=== PATIENT | female | born 1965 | race Caucasian/White ===

== ENCOUNTER 2017-01-17 11:50 | Observation (INO) | payer OTHER ==
[~2017-01-17] VITALS: Ht 172.7 cm; Wt 57.2 kg
[2017-01-17 13:26] LABS: BASOPHIL COUNT 0.1 K/uL (0-0.1); EOSINOPHIL (%) 0.6 % (0-5); HEMATOCRIT 38.8 % (36.0-46.0); IMMATURE GRANULOCYTE (%) 0.3 % (0.0-0.7); INSTRUMENT ABS NEUTROPHIL CT 4.2 K/uL; LYMPHOCYTE COUNT 1.6 K/uL (1.0-2.8); MCH 31.8 PG (29.0-34.0); MCHC 34.8 G/DL (30.0-36.0); MCV 91.5 FL (83-99); MEAN PLAT.VOLUME 10.6 uM^3 (9.5-12.4); MONOCYTE COUNT 0.3 K/uL (0-0.8); NEUTROPHIL (%) 67.7 % (45-76); NEUTROPHIL COUNT 4.2 K/uL (1.8-6.4); PLATELET COUNT 246 K/uL (156-360); RBC DIS.WIDTH-SD 39.9 % (39-53); RED BLOOD COUNT 4.24 M/uL (3.80-5.20); WHITE BLOOD COUNT 6.2 K/uL (4.1-10.2)
[2017-01-17 13:45] LABS: CHLORIDE 104 mEq/L (99-109); POTASSIUM 4.6 mEq/L (3.7-5.4); SODIUM 139 mEq/L (136-147)
[2017-01-17 13:46] LABS: MAGNESIUM 2.3 mg/dL (1.3-2.7)
[2017-01-17 13:48] LABS: GLUCOSE 90 mg/dL (70-99)
[2017-01-17 13:49] LABS: ANION GAP 12 MEQ/L (2-14)
[2017-01-17 13:50] LABS: TOTAL BILIRUBIN 1.2 mg/dL (0.0-1.0)
[2017-01-17 13:51] LABS: ALKALINE PHOSPHATASE 51 IU/L (3-129); GFR ESTIMATE (CALCULATED) > 59 mL/min/
[2017-01-17 13:52] LABS: UREA NITROGEN (BUN) 9 mg/dL (9-23)
[2017-01-17 13:58] LABS: ADD MIUA? NO; BILIRUBIN NEGATIVE; BLOOD NEGATIVE; COLOR STRAW ((YELLOW)); GLUCOSE (STRIP) NEGATIVE; KETONES NEGATIVE; LEUKOCYTES NEGATIVE; NITRITE NEGATIVE; PROTEIN (STRIP) NEGATIVE; SPECIFIC GRAVITY 1.008 (1.000-1.030); UCUL ADDED? NO; UROBILINOGEN 0.2 MG/DL (0.2-1.0)
[2017-01-17] MEDS ORDERED: ABILIFY5 MG PO (16:14)
[2017-01-17] MEDS ORDERED: LEXAPRO20 MG PO (16:14)
[2017-01-17] MEDS ORDERED: BENZTROPINE ME0.5 MG PO (16:15)
[2017-01-17] MEDS ORDERED: SYMBICORT60 INHALAT IH (16:15)
[2017-01-17] MEDS ORDERED: VENTOLIN HFA18 GM IH (16:15)
[2017-01-17 22:56] VITALS: BP 122/59
[2017-01-18 03:53] VITALS: BP 114/66
[2017-01-18 10:54] LABS: TREPONEMA ANTIBODY NEGATIVE (NEGATIVE)
[2017-01-18 12:18] VITALS: BP 121/67
[2017-01-18 16:00] VITALS: BP 131/74
[2017-01-18 21:00] VITALS: BP 114/78
[2017-01-19 00:19] VITALS: BP 105/57
[2017-01-19 04:21] VITALS: BP 122/67
[2017-01-19 13:43] LABS: APPEARANCE CLEAR/COLORLESS; RED CELL AREA COUNTED 18; RED CELL COUNT 2 /MM^3 (0-1); RED CELL DILUTION 1; WBC AREA COUNTED 18; WBC DILUTION 1; WHITE CELL COUNT 0 /MM^3 (0-5); WHITE CELL RAW COUNT 0
[2017-01-19 16:15] VITALS: BP 114/55
[2017-01-19 19:18] VITALS: BP 118/55
[2017-01-19 23:59] VITALS: BP 114/57
[2017-01-20 05:26] VITALS: BP 117/74
[2017-01-20 11:30] VITALS: BP 113/59
[2017-01-20] MEDS ORDERED: CYANOCOBALAM1000 MCG PO (13:28)
[2017-01-20] MEDS ORDERED: FIORICET 50-301 EAC1 PO (13:28)
[2017-01-20] MEDS ORDERED: FLEXERIL5 MG PO (13:32)
[2017-01-21 18:25] LABS: IgG Index, CSF 0.42 index (<0.66); Synthesis Rate IgG, CSF -3.8 mg/24 h (-9.9-3.3)
== END 2017-01-20 13:58 | disposition home or self-care (01) ==
LOC: EME 11:50 → 5WEST 16:42 → EDOF 16:42 → ENRESERV 16:44 → 5WEST 22:40
PROVIDERS: Emergency Medicine; Hospitalist; Radiology Diagnostic Radiology
PROC: 009U3ZX Drainage of Spinal Canal, Percutaneous Approach, Diagnostic (ICD-10-PCS; principal; 2017-01-19)
DX: R20.0 Anesthesia of skin (principal); R20.2 Paresthesia of skin; R15.9 Full incontinence of feces; R47.9 Unspecified speech disturbances; G93.0 Cerebral cysts; G97.1 Other reaction to spinal and lumbar puncture; F31.9 Bipolar disorder, unspecified; J44.9 Chronic obstructive pulmonary disease, unspecified; E53.8 Deficiency of other specified B group vitamins; G43.909 Migraine, unspecified, not intractable, without status migrainosus; M62.81 Muscle weakness (generalized); M54.2 Cervicalgia; R11.0 Nausea; Z96.641 Presence of right artificial hip joint; F12.90 Cannabis use, unspecified, uncomplicated; M51.36 Other intervertebral disc degeneration, lumbar region; M51.34 Other intervertebral disc degeneration, thoracic region; M51.26 Other intervertebral disc displacement, lumbar region; Z87.891 Personal history of nicotine dependence; Z88.5 Allergy status to narcotic agent; Z88.6 Allergy status to analgesic agent
CPT/HCPCS: 62270; 70450; 70553; 71020; 72141; 72146; 72148; 77003; 80053; 81003; 82040 90; 82042 90; 82607; 82784 90; 82945; 83735; 83873 90; 83916 90; 84157; 84443; 85025; 86780; 87070; 87205; 89051; 94640 76; 95819; 99202; 99281; 99285; G0378; G8978 GP CH; G8979 GP CH; G8980 GP CH; J3420

== ENCOUNTER 2017-06-05 16:49 | Emergency (ER) | payer OTHER ==
[~2017-06-05] VITALS: Ht 172.7 cm; Wt 57.7 kg
[~2017-06-05 16:49] MED LIST: ABILIFY5 MG PO; BENZTROPINE ME0.5 MG PO; CYANOCOBALAM1000 MCG PO; FIORICET 50-301 EAC1 PO; FLEXERIL5 MG PO; LEXAPRO20 MG PO; SYMBICORT60 INHALAT IH; VENTOLIN HFA18 GM IH
[2017-06-05] MEDS ORDERED: HYDROCODON-ACE1 EAC7 PO (17:06)
[2017-06-05 17:20] LABS: BASOPHIL (%) 1.2 % (0-1); BASOPHIL COUNT 0.1 K/uL (0-0.1); EOSINOPHIL (%) 5.8 % (0-5); EOSINOPHIL COUNT 0.4 K/uL (0-0.3); HEMATOCRIT 39.2 % (36.0-46.0); HEMOGLOBIN 13.9 G/DL (11.9-15.5); IMMATURE GRANULOCYTE (%) 0.3 % (0.0-0.7); LYMPHOCYTE (%) 30.5 % (15-42); LYMPHOCYTE COUNT 2.3 K/uL (1.0-2.8); MCHC 35.5 G/DL (30.0-36.0); MCV 90.3 FL (83-99); MONOCYTE (%) 9.2 % (3-12); MONOCYTE COUNT 0.7 K/uL (0-0.8); PLATELET COUNT 258 K/uL (156-360); RBC DIS.WIDTH-CV 11.8 % (11.8-14.6); RBC DIS.WIDTH-SD 38.9 % (39-53); RED BLOOD COUNT 4.34 M/uL (3.80-5.20); WHITE BLOOD COUNT 7.6 K/uL (4.1-10.2)
[2017-06-05 17:32] LABS: ALBUMIN 4.4 g/dL (3.2-4.8); CHLORIDE 100 mEq/L (99-109); POTASSIUM 3.8 mEq/L (3.7-5.4); SODIUM 138 mEq/L (136-147)
[2017-06-05 17:34] LABS: GLUCOSE 96 mg/dL (70-99)
[2017-06-05 17:35] LABS: TOTAL PROTEIN 7.1 g/dL (6.4-8.3)
[2017-06-05 17:36] LABS: TOTAL BILIRUBIN 1.8 mg/dL (0.0-1.0)
[2017-06-05 17:38] LABS: ALKALINE PHOSPHATASE 62 IU/L (3-129); CREATININE 0.7 mg/dL (0.6-1.3); GFR ESTIMATE (CALCULATED) > 59 mL/min/
[2017-06-05 17:39] LABS: UREA NITROGEN (BUN) 7 mg/dL (9-23)
[2017-06-05 17:40] LABS: AST (GOT) 14 IU/L (2-34)
[2017-06-05 17:41] LABS: ALT (GPT) 13 IU/L (3-49)
[2017-06-05 20:35] VITALS: BP 107/72
== END 2017-06-05 20:39 | disposition home or self-care (01) ==
LOC: EME 16:49
PROVIDERS: Emergency Medicine
DX: G89.18 Other acute postprocedural pain (principal); M54.2 Cervicalgia; R22.1 Localized swelling, mass and lump, neck; Z98.890 Other specified postprocedural states; K21.9 Gastro-esophageal reflux disease without esophagitis; F31.9 Bipolar disorder, unspecified; Z96.641 Presence of right artificial hip joint; Z88.5 Allergy status to narcotic agent; Z88.6 Allergy status to analgesic agent
CPT/HCPCS: 70491; 80053; 83605; 85025; 99281; 99285; J3010; J7040

== ENCOUNTER 2017-08-19 16:07 | Emergency (ER) | payer OTHER ==
[~2017-08-19] VITALS: Ht 172.7 cm; Wt 54.5 kg
[~2017-08-19 16:07] MED LIST changes: +HYDROCODON-ACE1 EAC7 PO
[2017-08-19 16:45] LABS: HEMATOCRIT 40.7 % (36.0-46.0); HEMOGLOBIN 14.4 G/DL (11.9-15.5); MCH 31.9 PG (29.0-34.0); MCHC 35.4 G/DL (30.0-36.0); MCV 90.2 FL (83-99); PLATELET COUNT 303 K/uL (156-360); RBC DIS.WIDTH-CV 12.2 % (11.8-14.6); RBC DIS.WIDTH-SD 40.1 % (39-53); RED BLOOD COUNT 4.51 M/uL (3.80-5.20); WHITE BLOOD COUNT 7.2 K/uL (4.1-10.2)
[2017-08-19 16:52] LABS: CHLORIDE 107 mEq/L (99-109); POTASSIUM 3.6 mEq/L (3.7-5.4); SODIUM 141 mEq/L (136-147)
[2017-08-19 16:54] LABS: GLUCOSE 103 mg/dL (70-99)
[2017-08-19 16:58] LABS: CREATININE 0.7 mg/dL (0.6-1.3); GFR ESTIMATE (CALCULATED) > 59 mL/min/; UREA NITROGEN (BUN) 14 mg/dL (9-23)
[2017-08-19 17:06] LABS: QUANTITATIVE HCG 4.3 MIU/ML
[2017-08-19 17:18] LABS: APPEARANCE CLOUDY ((CLEAR)); BILIRUBIN NEGATIVE; BLOOD NEGATIVE; COLOR YELLOW ((YELLOW)); GLUCOSE (STRIP) NEGATIVE; KETONES NEGATIVE; LEUKOCYTES NEGATIVE; NITRITE NEGATIVE; PROTEIN (STRIP) 100; SPECIFIC GRAVITY 1.028 (1.000-1.030); UROBILINOGEN 0.2 MG/DL (0.2-1.0)
[2017-08-19 17:38] LABS: BACTERIA RARE /HPF; EPITHELIAL CELLS 2+ /HPF; MUCUS 4+ /LPF; RED BLOOD CELLS 0-5 /HPF (0-5); WHITE BLOOD CELLS 0-5 /HPF (0-5)
[2017-08-19 17:59] VITALS: BP 115/69
== END 2017-08-19 18:05 | disposition home or self-care (01) ==
LOC: EME 16:07
PROVIDERS: Nurse Practitioner Family
DX: F41.9 Anxiety disorder, unspecified (principal); F32.9 Major depressive disorder, single episode, unspecified; F31.12 Bipolar disorder, current episode manic without psychotic features, moderate; Z59.0 Homelessness; K21.9 Gastro-esophageal reflux disease without esophagitis; M06.4 Inflammatory polyarthropathy; Z96.641 Presence of right artificial hip joint; Z88.5 Allergy status to narcotic agent; Z88.6 Allergy status to analgesic agent
CPT/HCPCS: 71046; 80048; 81003; 84702; 85027; 90837; 99281; 99284

== ENCOUNTER 2017-08-31 11:48 | Emergency (ER) | payer OTHER ==
[~2017-08-31] VITALS: Ht 172.7 cm; Wt 57.1 kg
[2017-08-31 13:06] LABS: BASOPHIL COUNT 0.1 K/uL (0-0.1); EOSINOPHIL (%) 0.7 % (0-5); EOSINOPHIL COUNT 0.1 K/uL (0-0.3); HEMOGLOBIN 13.6 G/DL (11.9-15.5); IMMATURE GRANULOCYTE (%) 0.9 % (0.0-0.7); LYMPHOCYTE (%) 24.8 % (15-42); LYMPHOCYTE COUNT 1.7 K/uL (1.0-2.8); MCH 32.2 PG (29.0-34.0); MCHC 34.9 G/DL (30.0-36.0); MCV 92.4 FL (83-99); MONOCYTE (%) 7.9 % (3-12); MONOCYTE COUNT 0.6 K/uL (0-0.8); NEUTROPHIL (%) 64.7 % (45-76); NEUTROPHIL COUNT 4.5 K/uL (1.8-6.4); PLATELET COUNT 237 K/uL (156-360); RBC DIS.WIDTH-CV 12.8 % (11.8-14.6); RBC DIS.WIDTH-SD 42.9 % (39-53); RED BLOOD COUNT 4.22 M/uL (3.80-5.20)
[2017-08-31 13:12] LABS: ALBUMIN 4.1 g/dL (3.2-4.8); CHLORIDE 103 mEq/L (99-109); INTER. NORMALIZED RATIO 0.9; POTASSIUM 4.2 mEq/L (3.7-5.4); SODIUM 138 mEq/L (136-147)
[2017-08-31 13:14] LABS: PTT 27.8 SEC (25-37)
[2017-08-31 13:15] LABS: GLUCOSE 97 mg/dL (70-99); TOTAL PROTEIN 6.4 g/dL (6.4-8.3)
[2017-08-31 13:16] LABS: TOTAL BILIRUBIN 1.4 mg/dL (0.0-1.0)
[2017-08-31 13:17] LABS: APPEARANCE CLEAR ((CLEAR)); BILIRUBIN NEGATIVE; BLOOD NEGATIVE; COLOR YELLOW ((YELLOW)); GLUCOSE (STRIP) NEGATIVE; KETONES NEGATIVE; LEUKOCYTES NEGATIVE; NITRITE NEGATIVE; PROTEIN (STRIP) NEGATIVE; UCUL ADDED? NO; UROBILINOGEN 0.2 MG/DL (0.2-1.0)
[2017-08-31 13:18] LABS: ALKALINE PHOSPHATASE 49 IU/L (3-129); CREATININE 0.7 mg/dL (0.6-1.3); GFR ESTIMATE (CALCULATED) > 59 mL/min/
[2017-08-31 13:19] LABS: UREA NITROGEN (BUN) 11 mg/dL (9-23)
[2017-08-31 13:20] LABS: AST (GOT) 12 IU/L (2-34); DIRECT BILIRUBIN 0.5 mg/dL (0.0-0.3)
[2017-08-31 13:21] LABS: ALT (GPT) 11 IU/L (3-49)
[2017-08-31 13:22] LABS: LIPASE 13 U/L (1.0-51.0)
[2017-08-31 13:24] LABS: TROP-I INTERPRETATION NEGATIVE; TROPONIN-I < 0.01 ng/mL (0.0-0.30)
[2017-08-31] MEDS ORDERED: AUGMENTIN875 MG PO (17:08)
[2017-08-31 17:34] VITALS: BP 101/63
== END 2017-08-31 17:35 | disposition home or self-care (01) ==
LOC: EME 11:48
PROVIDERS: Emergency Medicine
DX: R10.9 Unspecified abdominal pain (principal); R07.9 Chest pain, unspecified; K21.9 Gastro-esophageal reflux disease without esophagitis; M06.4 Inflammatory polyarthropathy; E32.9 Disease of thymus, unspecified; F31.9 Bipolar disorder, unspecified; Z79.891 Long term (current) use of opiate analgesic; Z87.19 Personal history of other diseases of the digestive system; Z96.641 Presence of right artificial hip joint; Z90.49 Acquired absence of other specified parts of digestive tract; Z88.6 Allergy status to analgesic agent; Z88.5 Allergy status to narcotic agent
CPT/HCPCS: 70450; 71046; 71260; 80048; 80076; 81003; 83605; 83690; 83880; 84484; 85025; 85610; 85730; 93005; 99281; 99285; J2405; J7030